=== PATIENT | female | born 1970 | race Caucasian/White ===

== ENCOUNTER 2016-09-02 11:10 | Emergency (ER) | payer OTHER ==
[2016-09-02 14:43] VITALS: BP 131/84
== END 2016-09-02 14:43 | disposition short-term general hospital (02) ==
LOC: ED 11:10
DX: S62.394A Other fracture of fourth metacarpal bone, right hand, initial encounter for closed fracture (principal); W54.0XXA Bitten by dog, initial encounter; Y93.89 Activity, other specified; Y99.8 Other external cause status; Y92.89 Other specified places as the place of occurrence of the external cause
CPT/HCPCS: 90715; J0295; J2001; J2405; J3010; J3490